=== PATIENT | female | born 1995 | race African-American/Black ===

== ENCOUNTER 2021-01-25 18:17 | Emergency (ER) | payer OTHER, SELFPAY ==
[2021-01-25 18:50] VITALS: BP 145/116; PULSE 110; RESP 16; TEMP 37.2; O2SAT 98
[2021-01-25 19:07] LABS: Basophils Absolute Auto 0.1 K/mm3 (0.0-0.1); Basophils Percent Auto 0.5 % (0.2-1.2); Eosinophils Absolute Auto 0.2 K/mm3 (0-0.3); Hematocrit 43.7 % (37.0-47.0); Hemoglobin 13.7 g/dL (12.0-15.0); Immature Granulocyte Absolute 0.01 K/mm3 (0.00-0.031); Immature Granulocyte Percent A 0.1 % (0-0.5); Lymphocytes Absolute Auto 3.52 K/mm3 (0.9-3.2); Lymphocytes Percent Auto 38.6 % (18.3-44.2); Mean Corpuscular HGB Conc 31.4 g/dl (32-36); Mean Corpuscular Hemoglobin 26.3 pg (26-34); Mean Corpuscular Volume 83.9 fl (80-100); Mean Platelet Volume 9.7 fl (7.4-10.4); Monocytes Absolute Auto 0.6 K/mm3 (0.1-0.6); Monocytes Percent Auto 6.4 % (2.6-8.5); Neutrophils Absolute Auto 4.8 K/mm3 (1.3-6.7); Neutrophils Percent Auto 52.4 % (45.5-73.1); Platelet Count Result 465 k/mm3 (150-375); Red Blood Count 5.21 M/mm3 (4.2-5.4); Red Cell Distribution Width 13.4 % (11.5-14.5); White Blood Count 9.1 K/mm3 (4.5-10.0)
[2021-01-25 19:13] LABS: Add Urine Microscopic? YES; Appearance Urine Cloudy (Clear); Bacteria Urine Trace /hpf; Bilirubin Urine Negative (Negative); Blood Urine 3+ (Negative); Calcium Oxalate Crystals Urine Many /hpf; Color Urine Yellow (Yellow); Glucose Urine UA 1+ mg/dL (Negative); Ketones Urine Negative (Negative); Leukocyte Esterase Ur Negative LEU/UL (Negative); Mucus Urine Few /lpf; Nitrate Urine Negative (Negative); Protein Urine 1+ mg/dL (Negative); RBC Urine >75 /hpf (0-2); Specific Grav Ur 1.029 (1.001-1.035); Squamous Epithelial Cell Urine Many /hpf (Few); Urobilinogen Urine Negative mg/dL (<2.0)
[2021-01-25 19:17] LABS: Alanine Aminotransferase 18 U/L (4-35); Albumin Level 4.7 g/dL (3.5-5.1); Alkaline Phosphatase 120 U/L (38-126); Anion Gap 12 mmol/L (8-16); Aspartate Amino Transferase 19 U/L (14-36); Bilirubin,Total 0.4 mg/dL (0.2-1.3); Blood Urea Nitrogen 13 mg/dL (7-17); Carbon Dioxide 28 mmol/L (22-30); Chloride 102 mmol/L (98-107); Estimated CRCL calculation 165 ml/min; Estimated Glomerular Filt Rate > 60; Glucose 241 mg/dL (65-110); Lipase 62 U/L (23-300); Potassium 3.6 mmol/L (3.4-5.0); Sodium 142 mmol/L (137-145)
[2021-01-25] MEDS: SIMETHICONE 125 MG CHEW TAB PO (20:21)
[2021-01-25 20:22] VITALS: BP 153/85; PULSE 88; RESP 16; O2SAT 99
--- NOTE | 2021-01-25 20:29 | ED.GENADULT ---
HPI - General Adult General Chief complaint: Abdominal Pain <Wendy Stevens PA-C - Last Filed: 01/25/21 21:55> Stated complaint: abd pain, sinus congestion <Wendy Stevens PA-C - Last Filed: 01/25/21 21:55> Time Seen by Provider: 01/25/21 19:00 <Wendy Stevens PA-C - Last Filed: 01/25/21 21:55> Source: patient <Wendy Stevens PA-C - Last Filed: 01/25/21 21:55> Mode of arrival: ambulatory <JACQUES Farfan Last Filed: 01/25/21 21:55> Limitations: no limitations <JACQUES Farfan Last Filed: 01/25/21 21:55> History of Present Illness HPI narrative: Patient presents with chief complaint of bloating, flatulence and some epigastric discomfort that began on Tuesday after eating [employer] also eating a hot dog. She denies sharp or persistent right upper quadrant pain. She denies having abdominal pain presently. She has only taken Tums for her symptoms. She denies any fever, chills, vomiting. She denies any urinary symptoms. Patient reports that she is having some breakthrough menstrual bleeding from depo. <Wendy Stevens PA-C - Last Filed: 01/25/21 21:55> Related Data Home medications: Home Medications Medication Instructions Recorded Confirmed glipizide mg PO 01/25/21 medroxyprogesterone mg IM 01/25/21 metformin mg PO 01/25/21 <Wendy Stevens PA-C - Last Filed: 01/25/21 21:55> Allergies/adverse reactions: Allergies Allergy/AdvReac Type Severity Reaction Status Date / Time No Known Allergies Allergy Verified 01/25/21 19:11 <Wendy Stevens PA-C - Last Filed: 01/25/21 21:55> Review of Systems Review of Systems: CONSTITUTIONAL: Denies fever, chills, or sweats. EYES: Denies visual changes, redness, or discharge. ENT: Denies rhinorrhea, congestion, sore throat, or otalgia. CARDIOVASCULAR: Denies chest pain, palpitations, or edema. RESPIRATORY: Denies cough or dyspnea. GASTROINTESTINAL: Reports belching and flatulence denies abdominal pain or vomiting GENITOURINARY: Denies dysuria or hematuria. SKIN: Denies rash or itching. MUSCULOSKELETAL: Denies back pain, joint pain, or myalgia. NEUROLOGIC: Denies headache, numbness, dizziness, or weakness. PSYCHIATRIC: Denies anxiety or depression. <Wendy Stevens PA-C - Last Filed: 01/25/21 21:55> Exam Narrative: GENERAL: Well-appearing, well-nourished, and in no acute distress. Obese. Nontoxic in appearance. HEAD: Normocephalic, atraumatic. EYES: PERRLA and EOMI. NECK: Supple. No adenopathy or masses. CHEST: Clear to auscultation. No respiratory distress. No wheezes rales or rhonchi HEART: Regular rate and rhythm. No murmur heard. Normal peripheral pulses. ABDOMEN: Soft, nontender with palpation, nondistended, normal active bowel sounds. SKIN: Warm, dry, no rash. NEURO: No focal deficits. Alert and oriented x3. PSYCH: Normal mood and affect. <Wendy Stevens PA-C - Last Filed: 01/25/21 21:55> Course Vital Signs Vital signs: Vital Signs Temperature 37.2 C 01/25/21 18:50 Pulse Rate 110 H 01/25/21 18:50 Respiratory Rate 16 01/25/21 18:50 Blood Pressure 145/116 H 01/25/21 18:50 Pulse Oximetry 98 01/25/21 18:50 Temperature 37.2 C 01/25/21 18:50 Pulse Rate 88 01/25/21 20:22 Respiratory Rate 16 01/25/21 20:22 Blood Pressure 153/85 H 01/25/21 20:22 Pulse Oximetry 99 01/25/21 20:22 <Wendy Stevens PA-C - Last Filed: 01/25/21 21:55> Medical Decision Making MDM Narrative Medical decision making narrative: Discussed with patient that it sounds as if she is having some gallbladder dysfunction. Patient does not have epigastric or right upper quadrant pain. Patient does not have any nausea vomiting. Patient's blood work does not show elevated AST ALT or bilirubin. Patient has diabetes. Patient has not taken her symptoms diet today she will be taking it when she goes home. Patient has been instructed to monitor her blood sugars and follow-up with her pr
== END 2021-01-25 20:35 | disposition home or self-care (01) ==
PROVIDERS: Emergency Provider Emergency Medicine; PCP Physician Assistant
DX: R14.3 Flatulence (principal); R14.2 Eructation; R14.1 Gas pain; R03.0 Elevated blood-pressure reading, without diagnosis of hypertension; R73.9 Hyperglycemia, unspecified
CPT/HCPCS: 36415; 80053; 81001; 81025; 83690; 85025; 87086; 87088; 99283; A9270

== ENCOUNTER 2023-01-06 15:39 | Emergency (ER) | payer OTHER, SELFPAY | END 2023-01-06 16:17 | disposition left against medical advice (07) | PROVIDERS: PCP Physician Assistant | DX: Z53.21 Procedure and treatment not carried out due to patient leaving prior to being seen by health care provider (principal) | CPT/HCPCS: 99199 ==